=== PATIENT | female | born 1970 | race Caucasian/White ===

== ENCOUNTER → 2018-03-31 | Outpatient (CLI) | payer BC ==
--- NOTE | 2018-03-31 13:46 | RAD ---
EXAM: Lumbar spine, 3 views; sacrum and coccyx, 3 views. HISTORY: Pain. COMPARISON: None. FINDINGS: 3 views of the lumbar spine and sacrum and coccyx are obtained. There is minimal retrolisthesis of L1 on L2, L2 on L3 and L3 on L4, a component of which is positional. There is endplate remodeling at multiple levels. There are multiple endplate Schmorl's nodes. There is no fracture. There is facet arthropathy at the lumbosacral junction. There are calcifications and clips. There is a clip within the right hemipelvis. The sacroiliac joints and pubis symphysis are intact. There is slight dorsal positioning of the tip of the coccyx relative to the sacrum, likely developmental or the sequela of remote injury. IMPRESSION: 1. No acute osseous finding. 2. Multilevel degenerative change within the lumbar spine, described above. Electronically signed by: Carmen Castro MD (03/31/2018 1:42 PM) [id number]
== END | disposition home or self-care (01) ==
LOC: PMG 11:46
PROVIDERS: ATTEND Physician Assistant
DX: M51.46 Schmorl's nodes, lumbar region (principal); M47.896 Other spondylosis, lumbar region; M53.3 Sacrococcygeal disorders, not elsewhere classified
CPT/HCPCS: 72100; 72220

== ENCOUNTER → 2018-04-24 | Outpatient (CLI) | payer BC ==
--- NOTE | 2018-04-27 08:37 | RAD ---
DATE: 04/24/2018 10:30 AM EXAM: MAMMO TARIK SCREENING BILATERAL HISTORY: routine screening evaluation. COMPARISON: None Bilateral CC and MLO views of the breasts were performed. Bilateral breast tomosynthesis was performed in CC and MLO projections. This study was interpreted with the benefit of Computerized Aided Detection (CAD ). Breast Density: The breast parenchyma shows scattered fibroglandular densities. Breast parenchyma level B. FINDINGS: Benign calcifications are present. No suspicious masses, microcalcifications or architectural distortion is present to suggest malignancy in either breast. The visualized axillae are unremarkable. IMPRESSION: No mammographic evidence of malignancy. BI-RADS CATEGORY: 2 BENIGN FINDING(S) RECOMMENDED FOLLOW-UP: 12M 12 MONTH FOLLOW-UP Annual screening mammography is recommended, unless clinically indicated sooner based on symptoms or change in physical exam. PQRS compliance statement: Patient information was entered into a reminder system with a target due date 04/24/2019 for the next mammogram. Mammography is a sensitive method for finding small breast cancers, but it does not detect them all and is not a substitute for careful clinical examination. A negative mammogram does not negate a clinically suspicious finding and should not result in delay in biopsying a clinically suspicious abnormality. "Our facility is accredited by the [employer] Mammography Program." MAISHAD
== END | disposition home or self-care (01) ==
LOC: MAMMO 08:12
PROVIDERS: ATTEND Physician Assistant
DX: Z12.31 Encounter for screening mammogram for malignant neoplasm of breast (principal)
CPT/HCPCS: 77063; 77067

== ENCOUNTER → 2021-03-14 | Outpatient (CLI) | payer BC ==
--- NOTE | 2021-03-14 12:31 | RAD ---
INDICATION : Routine Screening. COMPARISON: April 2018 TECHNIQUE: Standard mammogram screening views of the bilateral breasts were obtained with 3D tomosynt hesis. CAD was utilized. FINDINGS: The breasts are scattered density. On the right cc view within the lateral aspect of the breast appr oximately 7-8 cm from the nipple just superior to the nipple line there is an asymmetry identified wh ich appears new or more prominent than prior. Within the far posterior left breast abutting the pecto ralis within the upper breast there is a partially obscured mass. Cannot assess whether this was pres ent on prior since it would've been outside of the field of view. IMPRESSION: BI-RADS Category 0: Incomplete. Further imaging evaluation is needed. Within the far posterior left u pper breast abutting the pectoralis there is a partially obscured mass. The most likely cause is a ly mph node within the region but follow-up mammogram and ultrasound could confirm and ensure that there is not a mass in the area. In addition within the right breast on the CC view just lateral to the ni pple line there is an asymmetry identified which was not as prominent on prior examination. Could be from some prominent glandular tissue but diagnostic mammograms needed to further assess. If this pers ists on diagnostic mammography ultrasound would then been needed for further evaluation. The patient was placed into the recall system with a suggested recall date for follow up imaging. Mammography is the most sensitive method for finding small breast cancers, but it does not detect the m all and is not a substitute for careful clinical examination. A negative mammogram does not negate a clinically suspicious finding and should not result in delay in biopsying a clinically suspicious abnormality. Electronically signed by: Andre Berman MD (03/14/2021 12:29 PM) [id number]
== END ==
LOC: MAMMO 09:44
PROVIDERS: ATTEND Physician Assistant
DX: Z12.31 Encounter for screening mammogram for malignant neoplasm of breast (principal)
CPT/HCPCS: 77063; 77067

== ENCOUNTER → 2021-04-19 | Outpatient (CLI) | payer BC ==
--- NOTE | 2021-04-19 15:06 | RAD ---
PROCEDURE: MG DIAGNOSTIC BILAT HISTORY: The patient is 50 years old and is seen for Reason: callback / Spl. Instructions: / History : . COMPARISON: March 14, 2021 and April 24, 2018 TECHNIQUE: Bilateral ML views and spot compression views. Left CC exaggerated and MLO view was also o btained. Left breast ultrasound was also performed. DENSITY: There are scattered fibroglandular densities. FINDINGS: Right mammogram: Asymmetry within the right breast is less apparent on spot compression views, likely overlapping fibroglandular tissue. Left mammogram: Persistent asymmetry within the left far posterior superior breast not well seen on s pot compression views and only seen on MLO view. Approximately 16 cm from the nipple measures 1.1 x 1 .0 cm. Left ultrasound: Lymph node within the left axillary tail inferior 2:00 position 14 cm from the nippl e measures 1.0 x 2.0 x 2.5 cm. The lymph node corresponds with mammographic finding. IMPRESSION: 1. Left far posterior asymmetry corresponds with inferior axillary tail lymph node. Recommend return to annual screening. 2. Right outer breast asymmetry is less apparent on spot compression views and likely overlapping fi broglandular tissue. Recommend annual screening mammograms per [employer] guidelines. She will be due in one year. BI-RADS category 2 Benign Patient entered into a reminder system for annual screening mammogram. Electronically signed by: Harsh Chambers DO (04/19/2021 3:04 PM) [id number]
== END ==
LOC: MAMMO 13:34
PROVIDERS: ATTEND Physician Assistant
DX: R92.8 Other abnormal and inconclusive findings on diagnostic imaging of breast (principal)
CPT/HCPCS: 76642; 77066